=== PATIENT | male | born 1955 | race Caucasian/White ===

== ENCOUNTER 2025-07-22 01:45 | Emergency (ER) | payer OTHER, SELFPAY ==
[2025-07-22 01:48] VITALS: BP 155/106
--- NOTE | 2025-07-22 03:06 | ED.GENMED ---
History of Present Illness
General
Chief Complaint: Urinary Symptoms
Source: patient
Exam Limitations: none
Time Seen by Provider: 07/22/25 01:56
Nursing documentation reviewed up to this point in time: agreed with
History of Present Illness
History of Present Illness:
69-year-old male presenting with concerns of urinary retention over the past few hours. Does have a history of BPH no history of retention.
Past History
Past History
ED Past Medical History: Other (BPH, thyoma)
ED Past Surgical History: Other (Cyst removed from right flank)
Social History
Tobacco: Non-smoker
Alcohol: Daily (Beer or Whisky 2-3 glasses)
Personal:
Living: with family
Review of Systems
Review of Systems
Allergies reviewed?: Yes
All Other Systems: ROS reviewed and negative except as documented in HPI and ROS
Phy Exam
Physical Exam
Physical Exam:
GENERAL: Alert , in no apparent distress
EYE: pupils equal and reactive
NECK: Supple, no significant adenopathy.
ENT: o/p clr, mmm.
CARDIAC: Regular rate and rhythm .
LUNGS: Clear breath sounds bilaterally, no acute respiratory distress, no wheezes/rales/rhonchi
ABDOMEN: Soft, without focal tenderness, no r/g, no cvat
NEUROLOGICAL: Alert and oriented, no focal neuro deficits
SKIN: Warm and dry, skin intact.
MUSCULOSKELETAL: No edema, well perfused.
PSYCH: Normal and appropriate interaction.
Course
Orders/Labs/Results
Orders:
Orders
07/22/25 01:58
Bustos Placement- Treatment ONCE
Reason for insertion: Acute Retention
07/22/25 03:11
Urinalysis Reflex To Culture Urgent
Date Specimen was Collected: 07/22/25
Time Specimen was Collected: 03:09
Urine Microscopic Reflex Cult Urgent
Abnormal Lab Results
07/22/25
03:11
Ur Occult Blood Reflex 4+ A
(Negative)
Vital Signs
Initial and Last Documented VS:
Initial Vital Signs
Temp Pulse Resp BP Pulse Ox
98.2 F 111 20 155/106 96
07/22/25 01:48 07/22/25 01:48 07/22/25 01:48 07/22/25 01:48 07/22/25 01:48
Last Documented Vital Signs
Temp Pulse Resp BP Pulse Ox
98.2 F 88 17 148/93 99
07/22/25 01:48 07/22/25 04:14 07/22/25 04:14 07/22/25 04:14 07/22/25 04:14
MDM/Problems Addressed
MDM/Problems Addressed:
69-year-old male presenting to the emergency department with concerns of urinary retention. Does have a history of BPH. Bustos catheter was placed with immediate resolution of symptoms. Vital signs normal after treatment. Stable for close
outpatient follow-up with his urologist. Return precautions given.
*Pulse Oximetry
SaO2: 96
Oxygen Mode of Delivery: Room air
Patient hypoxic: no (99)
*Critical Care Note
Total Time (30-74mins, 75-104mins- exclusive of procedures): Not Applicable
ED Attending Note
-
Portions of this chart may have been created with voice recognition software.� Occasional wrong word or��sound alike� substitutions may have occurred due to the inherent limitations of voice recognition software.
Discharge Plan
Departure
Patient Disposition: Home (Routine Discharge)
Date of Disposition: 07/22/25
Time of Disposition: 03:57
Patient with high blood pressure during this ER visit?: No
Condition: Good
Covid-19: Not Applicable
Discharge Problem:
Acute urinary retention
Instructions: How to Care for Your Bustos Catheter, Male
Prescriptions:
No Action
tamsulosin 0.4 MG capsule
0.4 mg PO DAILY
finasteride 5 MG tablet
5 mg PO DAILY
tadalafil 5 MG tablet
5 mg PO DAILY
silodosin [Rapaflo] 8 MG capsule
8 mg PO DAILY
doxycycline hyclate 100 MG capsule
100 mg PO Q12 Qty: 10 0RF
Patient Comments:
last dose today
doxycycline hyclate 100 mg capsule
100 mg PO BID Qty: 14 0RF
Referrals:
Keo Melendez MD [Family Provider, [facility]]
Activity Restrictions/Additional Instructions:
You came to the emergency department today with concerns of urinary retention. Please follow-up closely with your urologist. Return for any worsening, new or concerning symptoms.
Interventions
Interventions:
*Risk Screen - Suicide Last Done: 07/22/25 01:48
*General Assessment Last Done: 07/22/25 02:52
*Neglect/Abuse Screening Last Done: 07/22/25 03:00
*ED- Fall Risk Assessment Last Done: 07/22/25 02:52
*ED COVID-19 Vaccine History Last Done: 07/22/25 02:52
*Nursing Disposition Last Done: 07/22/25 04:14
ED-Male Genitourinary Assessment Last Done: 07/22/25 02:10
Discharge Date and Time
Discharge Date/Time: 07/22/25 04:16
Print Language: BELIZEAN
[2025-07-22 03:23] LABS: Urine Character Clear (Clear)
[2025-07-22 03:49] LABS: Urine Red Blood Cell 0-2 /HPF (0-2); Urine Squamous Cell 0-2 /LPF (Few); Urine White Cell 0-2 /HPF (0-5)
[2025-07-22 04:14] VITALS: BP 148/93
== END 2025-07-22 04:16 | disposition home or self-care (01) ==
LOC: EMR 01:45
PROVIDERS: Physician Assistant; EMERGENCY PHYSICIAN Student in an Organized Health Care Education/Training Program; FAMILY PHYSICIAN Family Medicine
DX: R33.9 Retention of urine, unspecified (principal); N40.1 Benign prostatic hyperplasia with lower urinary tract symptoms; Z46.6 Encounter for fitting and adjustment of urinary device
CPT/HCPCS: 99282; 51702; 81003; 81015